=== PATIENT | male | born 1975 | race Caucasian/White ===

== ENCOUNTER 2018-04-27 01:35 | Emergency (ER) | payer MEDICARE, MEDICAID ==
[~2018-04-27] VITALS: Ht 165.1 cm; Wt 71.6 kg
[2018-04-27 01:38] VITALS: BP 128/71
[2018-04-27] MEDS ORDERED: NAPR-56 PO (01:48)
[2018-04-27] MEDS ORDERED: naproxen 500mg tablet PO ONE (01:50)
== END 2018-04-27 02:26 | disposition home or self-care (01) ==
LOC: ER 01:36
DX: S93.401A Sprain of unspecified ligament of right ankle, initial encounter (principal); Z79.899 Other long term (current) drug therapy; X50.1XXA Overexertion from prolonged static or awkward postures, initial encounter; Y93.89 Activity, other specified; Y92.89 Other specified places as the place of occurrence of the external cause; Y99.8 Other external cause status
CPT/HCPCS: 73610; 99284

== ENCOUNTER 2018-07-26 22:54 | Emergency (ER) | payer MEDICARE, OTHER ==
[~2018-07-26] VITALS: Ht 165.1 cm; Wt 85.0 kg
[2018-07-26 22:59] VITALS: BP 133/81
[2018-07-26] MEDS ORDERED: ONDA4TAB9 SL (23:29)
== END 2018-07-26 23:35 | disposition home or self-care (01) ==
LOC: ER 22:54
DX: R11.0 Nausea (principal)
CPT/HCPCS: 99283

== ENCOUNTER 2019-09-28 22:57 | Emergency (ER) | payer MEDICARE, MEDICAID ==
[~2019-09-28] VITALS: Ht 165.1 cm; Wt 84.1 kg
[~2019-09-28 22:57] MED LIST: IBUP-1985 PO
[2019-09-28] MEDS ORDERED: CYCL5TAB PO (23:23)
[2019-09-28] MEDS ORDERED: MELO-102 PO (23:23)
[2019-09-28] MEDS ORDERED: IBUP-1984 PO (23:42)
[2019-09-28] MEDS ORDERED: HYDROcodone/acetaminophen 5mg/325mg tablet PO ONE (23:45)
[2019-09-28] MEDS ORDERED: ondansetron 4mg rapidly disintigrating tab PO ONE (23:45)
[2019-09-28 23:56] VITALS: BP 133/76
== END 2019-09-29 | disposition home or self-care (01) ==
LOC: ER 22:58
DX: S86.812A Strain of other muscle(s) and tendon(s) at lower leg level, left leg, initial encounter (principal); X58.XXXA Exposure to other specified factors, initial encounter; Y93.89 Activity, other specified; Y92.89 Other specified places as the place of occurrence of the external cause; Y99.9 Unspecified external cause status
CPT/HCPCS: 99283

== ENCOUNTER 2019-10-14 15:34 | Emergency (ER) | payer MEDICARE, MEDICAID ==
[~2019-10-14] VITALS: Ht 165.1 cm; Wt 89.0 kg
[~2019-10-14 15:34] MED LIST changes: +CYCL5TAB PO; -IBUP-1985 PO; +LIDOcaine 1% W/epiNEPHrine 1:200,000 10ml vial ONE; +MELO-102 PO
[2019-10-14 15:35] VITALS: BP 133/73
[2019-10-14] MEDS ORDERED: TETanus/Pertussis (Acell)/Diphther VAC/PF (Tdap-Adult) 0.5ml syringe IMVAC ONE (16:40)
== END 2019-10-14 17:08 | disposition home or self-care (01) ==
LOC: ER 15:34
DX: S61.208A Unspecified open wound of other finger without damage to nail, initial encounter (principal); M79.645 Pain in left finger(s); Z79.899 Other long term (current) drug therapy; W25.XXXA Contact with sharp glass, initial encounter; Y92.010 Kitchen of single-family (private) house as the place of occurrence of the external cause; Y93.G1 Activity, food preparation and clean up
CPT/HCPCS: 64450; 90471; 90715; 99284

== ENCOUNTER 2019-10-15 21:00 | Emergency (ER) | payer MEDICARE, MEDICAID ==
[~2019-10-15] VITALS: Ht 165.1 cm; Wt 79.0 kg
[~2019-10-15 21:00] MED LIST changes: -LIDOcaine 1% W/epiNEPHrine 1:200,000 10ml vial ONE
[2019-10-15 21:19] VITALS: BP 143/89
== END 2019-10-15 23:17 | disposition home or self-care (01) ==
LOC: ER 21:00
DX: S61.213D Laceration without foreign body of left middle finger without damage to nail, subsequent encounter (principal); Z79.899 Other long term (current) drug therapy; W26.8XXD Contact with other sharp object(s), not elsewhere classified, subsequent encounter
CPT/HCPCS: 99283

== ENCOUNTER 2024-04-11 00:39 | Emergency (ER) | payer MEDICARE, MEDICAID ==
[~2024-04-11] VITALS: Ht 165.1 cm; Wt 98.2 kg
[2024-04-11 01:40] VITALS: BP 134/86; PULSE 81; RESP 14; TEMP 98.2; O2SAT 98
== END 2024-04-11 01:38 | disposition home or self-care (01) ==
LOC: ER 00:40
DX: H93.13 Tinnitus, bilateral (principal); Z79.899 Other long term (current) drug therapy
CPT/HCPCS: 99281